=== PATIENT | female | born 1985 | race Two or more races ===

== ENCOUNTER → 2017-07-20 | Outpatient (CLI) | payer BC ==
--- NOTE | 2017-07-20 17:05 | RAD ---
Ultrasound pelvis Indication: Endometriosis Technique: Grayscale and color Doppler ultrasound of the pelvis with transabdominal approach. Comparison: None Findings: The uterus measures 8.9 x 3.4 x 5.2 cm and is within normal limits. Endometrial stripe measures 4.5 mm and is within normal limits. The right ovary measures 3.2 x 2.1 x 2.4 cm and demonstrates evidence of blood flow. The left ovary measures 4.8 x 1.3 x 3.9 cm. No ovarian solid or cystic lesions. No free fluid in the pelvis. Impression: Exam within normal limits. If concern for endometriosis is high, please consider MRI pelvis without and with IV contrast.
== END | disposition home or self-care (01) ==
LOC: US 15:37
PROVIDERS: ATTEND Obstetrics & Gynecology
DX: N80.9 Endometriosis, unspecified (principal)
CPT/HCPCS: 76856